=== PATIENT | female | born 1945 | race Caucasian/White ===

== ENCOUNTER 2020-06-25 11:37 | Inpatient (IN) | payer MEDICARE, OTHER ==
[2020-06-25 13:22] LABS: BASOPHIL 0.7 % (0-2); EOSINOPHIL 0.1 % (0-7); HCT 45.3 % (37.0-47.0); HGB 14.5 g/dl (12.5-16.0); LYMPHOCYTE 12.7 % (15-48); MCH 28.4 pg (25.0-31.0); MCV 88.8 fL (78.0-100.0); MONOCYTE 8.3 % (0-12); MPV 12.5 fL (6.0-9.5); NEUTROPHIL 77.2 % (41-80); NRBC 0.2; RBC 5.1 M/uL (4.20-5.40); RDW 22.7 % (11.5-14.0); WBC 8.4 K/uL (4.0-10.5)
[2020-06-25 13:25] LABS: INR 1.48 (0.9-1.2); PTT 36.3 SECONDS (22.2-34.7)
[2020-06-25 13:41] LABS: LACTIC ACID 1.8 mmol/L (0.4-1.9)
[2020-06-25 13:47] LABS: ALBUMIN 2.2 g/dL (3.4-5.0); BUN/CREAT RATIO (CALC) 21.7 RATIO; CREATININE 0.92 mg/dL (0.51-0.95); GLOBULIN (CALCULATION) 4.7 g/dL; POTASSIUM 4.6 mmol/L (3.5-5.1); TOTAL PROTEIN 6.9 g/dL (6.4-8.2)
[2020-06-25 13:48] LABS: BILIRUBIN - TOTAL 12.6 mg/dL (0.2-1.0)
[2020-06-25 14:43] LABS: BILIRUBIN 3+ mg/dL (NEGATIVE); BLOOD NEGATIVE Ery/uL (NEGATIVE); CLARITY CLEAR (CLEAR); GLUCOSE (U) NORMAL (NORMAL); LEUKOCYTES NEGATIVE Leu/uL (NEGATIVE); NITRITE NEGATIVE (NEGATIVE); PROTEIN TRACE (LOW) mg/dL (NEGATIVE); SPECIFIC GRAVITY >=1.030 (1.001-1.030); pH 5.5 (5.0-9.0)
[2020-06-25 14:46] LABS: COLOR AMBER (YELLOW)
[2020-06-25 14:49] LABS: BACTERIA TRACE; GRANULAR CASTS TRACE
[2020-06-25] MEDS ORDERED: ATENOLOL25 MG PO (17:45)
[2020-06-25] MEDS ORDERED: CETIRIZINE HCL10 MG PO (17:45)
[2020-06-25] MEDS ORDERED: ZOCOR20 MG PO (17:46)
[2020-06-25] MEDS ORDERED: SINGULAIR10 MG PO (17:47)
[2020-06-25] MEDS ORDERED: OMEPRAZOLE20 M1 PO (17:47)
[2020-06-26 06:08] LABS: BASOPHIL 0.6 % (0-2); EOSINOPHIL 0.3 % (0-7); HCT 38.5 % (37.0-47.0); HGB 12.2 g/dl (12.5-16.0); LYMPHOCYTE 20.3 % (15-48); MCHC 31.7 g/dL (32.0-36.0); MCV 88.3 fL (78.0-100.0); MONOCYTE 9.2 % (0-12); MPV 11.7 fL (6.0-9.5); NEUTROPHIL 68.1 % (41-80); NRBC 0; PLT 230 K/uL (150-400); RBC 4.36 M/uL (4.20-5.40); RDW 22.7 % (11.5-14.0); WBC 7.8 K/uL (4.0-10.5)
[2020-06-26 06:41] LABS: ALBUMIN 1.9 g/dL (3.4-5.0); BILIRUBIN - TOTAL 11.1 mg/dL (0.2-1.0); BUN/CREAT RATIO (CALC) 23.5 RATIO; CREATININE 0.81 mg/dL (0.51-0.95); GLOBULIN (CALCULATION) 4.1 g/dL; POTASSIUM 4.2 mmol/L (3.5-5.1)
[2020-06-27] MEDS ORDERED: ONDANSETRON4 MG/2 M2 IVP (09:39)
[2020-06-27 13:08] LABS: CALCIUM, SERUM 10.4 mg/dL (8.7-10.3); PTH, INTACT 12 pg/mL (15-65)
== END 2020-06-27 11:35 | disposition other institution (70) | DRG 445 ==
LOC: FER 11:37 → FMS 16:01
PROVIDERS: Emergency Medicine; ADMIT Internal Medicine
DX: K83.1 Obstruction of bile duct (principal); C77.3 Secondary and unspecified malignant neoplasm of axilla and upper limb lymph nodes; C78.7 Secondary malignant neoplasm of liver and intrahepatic bile duct; R11.15 Cyclical vomiting syndrome unrelated to migraine; C50.919 Malignant neoplasm of unspecified site of unspecified female breast; Z20.822 Contact with and (suspected) exposure to COVID-19; E78.5 Hyperlipidemia, unspecified; I10 Essential (primary) hypertension; E86.0 Dehydration; J45.909 Unspecified asthma, uncomplicated; M19.90 Unspecified osteoarthritis, unspecified site; E16.2 Hypoglycemia, unspecified; E83.52 Hypercalcemia
CPT/HCPCS: 36415; 70450; 70470; 71260; 72131; 74181; 76942; 80053; 81001; 82140; 82248; 82310; 83540; 83605; 83615; 83735; 83970; 84145; 85025; 85610; 85730; 87088; 93005; J1170; J1650; J3480; J7030; Q9967; U0002